=== PATIENT | female | born 1945 | race Caucasian/White ===

== ENCOUNTER 2016-12-11 11:03 | Day surgery (SDC) | payer MEDICARE, BC ==
[~2016-12-11 11:03] MED LIST: Lactated Ringers 1,000 ML IV SCH; Midazolam 1 MG/ML 2 ML SDV ONE; Propofol 200 MG/20 ML SDV ONE
--- NOTE | 2016-12-11 13:18 | PCM.PREANE ---
Preanesthetic Assessment - Anesthesia/Transfusion/Family Hx Anesthesia History: No Prior Anesthesia Other Type of Anesthesia Reaction Comment: states "it takes me awhile to wake up " Family History of Anesthesia Reaction: No Transfusion History: No Prior Transfusion(s) - Review of Systems General: No Symptoms Pulmonary: No Symptoms Cardiovascular: No Symptoms Gastrointestinal: No Symptoms Neurological: No Symptoms Other: Reports: None - Physical Assessment NPO Status Date: 12/10/16 Height: 1.68 m Weight: 101.151 kg ASA Class: 2 Mental Status: Alert & Oriented x3 Airway Class: Mallampati = 2 Dentition: Reports: Normal Dentition, Bridge ROM/Head Extension: Full Lungs: Clear to Auscultation, Normal Respiratory Effort Cardiovascular: Regular Rate, Regular Rhythm - Allergies Allergies/Adverse Reactions: Allergies Allergy/AdvReac Type Severity Reaction Status Date / Time aspirin [From Percodan] Allergy Cannot Verified 09/20/13 11:37 Remember bacitracin Allergy Cannot Verified 09/20/13 11:37 Remember oxycodone HCl [From Percodan] Allergy Cannot Verified 09/20/13 11:37 Remember oxycodone terephthalate Allergy Cannot Verified 09/20/13 11:37 [From Percodan] Remember polymyxin B Allergy Cannot Verified 09/20/13 11:37 Remember - Acknowledgements Anesthesia Type Planned: MAC Pt an Appropriate Candidate for the Planned Anesthesia: Yes Alternatives and Risks of Anesthesia Discussed w Pt/Guardian: Yes Pt/Guardian Understands and Agrees with Anesthesia Plan: Yes PreAnesthesia Questionnaire HEENT History: Reports: Other (See Below) Other HEENT History: wears glasses Cardiovascular History: Reports: Heart Murmur, Hypertension Gastrointestinal History: Reports: GERD, Hiatal Hernia, Other (See Below) Other Gastrointestinal History: hx gastric ulcer Genitourinary History: Reports: None 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: Musculoskeletal History: Reports: Arthritis Endocrine/Metabolic History: Reports: Diabetes, Type II, Obesity/BMI 30+ Oncologic (Cancer) History: Reports: Basal Cell Carcinoma - Past Surgical History Head Surgeries/Procedures: Reports: None HEENT Surgical History: Reports: Oral Surgery, Tonsillectomy GI Surgical History: Reports: Appendectomy Female Surgical History: Reports: Hysterectomy Dermatological Surgical History: Reports: Skin Biopsy - SUBSTANCE USE Smoking Status *Q: Never Smoker Recreational Drug Use History: No - HOME MEDS Home Medications: Home Meds Aspirin [Lo-Dose Aspirin EC] 81 mg PO DAILY 12/09/16 [History] Cod Liver Oil 1,000 mg PO DAILY 12/09/16 [History] Enalapril Maleate 2.5 mg PO DAILY 12/09/16 [History] Fluticasone Propionate [Flonase Allergy Relief] 1 spray NASBOTH DAILY 12/09/16 [ History] Furosemide [Lasix] 20 mg PO DAILY 12/09/16 [History] Ranitidine HCl [Zantac] 150 mg PO DAILY PRN 12/09/16 [History] Tretinoin/Emollient Base [Tretinoin 0.05% Emollient Crm] 1 applic TOP ASDIRECTED PRN 12/09/16 [History] Turmeric Root Extract [Turmeric] 1 tab PO DAILY 12/09/16 [History] amLODIPine Besylate [Amlodipine Besylate] 10 mg PO DAILY 12/09/16 [History] metFORMIN HCl [Metformin HCl] 850 mg PO BID 12/09/16 [History] - CURRENT (IN HOUSE) MEDS Current Meds: Current Medications Lactated Ringer's (Ringers, Lactated) 1,000 mls @ 125 mls/hr IV ASDIRECTED ANTHONY Discontinued Medications Midazolam HCl (Versed 1 Mg/Ml) Confirm Administered Dose 2 mg .ROUTE .STK-MED ONE Stop: 12/11/16 07:17 Propofol (Diprivan 20 Ml) Confirm Administered Dose 400 mg .ROUTE .STK-MED ONE Stop: 12/11/16 07:17
[2016-12-11] MEDS ORDERED: Propofol 200 MG/20 ML SDV ONE (13:45)
--- NOTE | 2016-12-11 14:11 | PCM.OPNOTE ---
- General Post-Op/Procedure Note Date of Surgery/Procedure: 12/11/16 Operative Procedure(s): Colonoscopy with cold, proximal rectal polypectomy Pre Op Diagnosis: Desire for colorectal cancer screening. Family history of colon cancer. Post-Op Diagnosis: Proximal rectal polyp. Minimal sigmoid diverticulosis Anesthesia Technique: MAC (ASA II) Primary Surgeon: Samy Jacome Sales Market Leader: Anne-Marie Tripathi Condition: Good Free Text/Narrative:: Dictation [id number] CPT CODE 30498
[2016-12-11] MEDS ORDERED: Lactated Ringers 1,000 ML IV SCH (14:15)
--- NOTE | 2016-12-11 14:22 | PCM.POSTAN ---
POST ANESTHESIA ASSESSMENT - MENTAL STATUS Mental Status: Alert, Oriented - RESPIRATORY Respiratory Status: Respiratory Rate WNL, Airway Patent, O2 Saturation Stable - CARDIOVASCULAR CV Status: Pulse Rate WNL, Blood Pressure Stable - GASTROINTESTINAL GI Status: No Symptoms - POST OP HYDRATION Hydration Status: Adequate & Stable
--- NOTE | 2016-12-11 14:22 | PCM48HPAN ---
Post Anesthesia Note - EVALUATION WITHIN 48HRS OF ANESTHETIC Vital Signs in Normal Range: Yes Patient Participated in Evaluation: Yes Respiratory Function Stable: Yes Airway Patent: Yes Cardiovascular Function Stable: Yes Hydration Status Stable: Yes Pain Control Satisfactory: Yes Nausea and Vomiting Control Satisfactory: Yes Mental Status Recovered: Yes
[2016-12-11 16:17] VITALS: BP 117/57
--- NOTE | 2016-12-11 19:09 | OR ---
SURGEON: Samy Jacome M.D. DATE OF PROCEDURE: 12/11/2016 OPERATION PERFORMED: Colonoscopy with cold proximal rectal polypectomy. ANESTHESIA: MAC. ASA CLASSIFICATION: II. PREOPERATIVE DIAGNOSES: 1. Desire for colorectal cancer screening. 2. Family history of colon cancer. POSTOPERATIVE DIAGNOSES: 1. Proximal rectal polyp. 2. Minimal sigmoid diverticulosis. DESCRIPTION OF PROCEDURE: The patient was taken to the endoscopy room and positioned on the endoscopy table in the left lateral decubitus position. Time-out was called for appropriate identification of the patient and procedure. Monitored anesthesia care was provided. The colonoscope was inserted into the rectum and advanced with moderate difficulty to the cecum where the colonoscope was retroflexed to visualize the ascending colon from below. The colonoscope was then straightened and slowly withdrawn. The cecum, ascending colon, hepatic flexure, transverse colon, splenic flexure, and descending colon showed no tumors, polyps, diverticula, or angiodysplastic changes. A few small scattered diverticula were noted in the sigmoid colon. One polyp was encountered in the proximal rectum and removed with the cold biopsy forceps. No significant bleeding was noted. The colonoscope was then withdrawn to the distal rectum and retroflexed to visualize the anal orifice from above. Again, no tumors or polyps were seen and there were no acute hemorrhoidal changes. The colonoscope was then straightened, the rectum aspirated, and the colonoscope removed. The patient tolerated the procedure well and was taken to recovery room in stable condition. EVELINE MIKE /[id number]
== END 2016-12-11 14:46 | disposition home or self-care (01) ==
LOC: MW.SDS 11:03
PROVIDERS: ATTEND Surgery
DX: Z12.11 Encounter for screening for malignant neoplasm of colon (principal); D12.8 Benign neoplasm of rectum; Z80.0 Family history of malignant neoplasm of digestive organs; K57.30 Diverticulosis of large intestine without perforation or abscess without bleeding; E11.9 Type 2 diabetes mellitus without complications; I10 Essential (primary) hypertension; E78.00 Pure hypercholesterolemia, unspecified; J30.2 Other seasonal allergic rhinitis; Z88.8 Allergy status to other drugs, medicaments and biological substances; Z79.82 Long term (current) use of aspirin; Z79.899 Other long term (current) drug therapy; Z90.49 Acquired absence of other specified parts of digestive tract; Z90.710 Acquired absence of both cervix and uterus; Z98.890 Other specified postprocedural states
CPT/HCPCS: 45380; 88305; J2250; J7120; 00810; J2704

== ENCOUNTER 2020-11-11 07:14 | Day surgery (SDC) | payer MEDICARE, BC ==
[~2020-11-11 07:14] MED LIST changes: -Midazolam 1 MG/ML 2 ML SDV ONE; -Propofol 200 MG/20 ML SDV ONE
--- NOTE | 2020-11-11 07:46 | PCM.PREANE ---
Preanesthetic Assessment - Procedure Proposed Procedure: Colonoscopy - Anesthesia/Transfusion/Family Hx Anesthesia History: Prior Anesthesia Without Reaction Other Type of Anesthesia Reaction Comment: states "it takes me awhile to wake up" Transfusion History: No Prior Transfusion(s) Additional History: Colonoscopy - Review of Systems General: No Symptoms (Stage II CKD) Pulmonary: No Symptoms Cardiovascular: No Symptoms (HTN, HLD) Gastrointestinal: No Symptoms Neurological: No Symptoms Other: Reports: None, Diabetes (NIDDM) - Physical Assessment NPO Status Date: 11/09/20 NPO Status Time: 18:00 Height: 5 ft 6 in Weight: 95.254 kg (Obesity) ASA Class: 3 Mental Status: Alert & Oriented x3 Airway Class: Mallampati = 2 Dentition: Reports: Normal Dentition Thyro-Mental Finger Breadths: 3 Mouth Opening Finger Breadths: 3 ROM/Head Extension: Full Lungs: Clear to Auscultation, Normal Respiratory Effort Cardiovascular: Regular Rate, Regular Rhythm - Allergies Allergies/Adverse Reactions: Allergies Allergy/AdvReac Type Severity Reaction Status Date / Time aspirin [From Percodan] Allergy Itching Verified 11/06/20 11:42 bacitracin Allergy Rash Verified 11/06/20 11:42 oxycodone HCl [From Percodan] Allergy Itching Verified 11/06/20 11:46 oxycodone terephthalate Allergy Itching Verified 11/06/20 11:42 [From Percodan] - Acknowledgements Anesthesia Type Planned: General Anesthesia Pt an Appropriate Candidate for the Planned Anesthesia: Yes Alternatives and Risks of Anesthesia Discussed w Pt/Guardian: Yes Pt/Guardian Understands and Agrees with Anesthesia Plan: Yes PreAnesthesia Questionnaire HEENT History: Reports: Allergic Rhinitis, Other (See Below) Other HEENT History: wears glasses Cardiovascular History: Reports: High Cholesterol, Hypertension Respiratory History: Reports: None Gastrointestinal History: Reports: Colon Polyp, Diverticulosis, GERD, Hiatal Hernia, Other (See Below) Genitourinary History: Reports: Other (See Below) Other Genitourinary History: stage II kidney disease 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: Musculoskeletal History: Reports: Arthritis Neurological History: Reports: None Psychiatric History: Reports: None Endocrine/Metabolic History: Reports: Diabetes, Type II, Obesity/BMI 30+ Hematologic History: Reports: None Immunologic History: Reports: None Oncologic (Cancer) History: Reports: Squamous Cell Carcinoma Dermatologic History: Reports: Other (See Below) - Past Surgical History Head Surgeries/Procedures: Reports: None HEENT Surgical History: Reports: Adenoidectomy, Oral Surgery, Tonsillectomy Cardiovascular Surgical History: Reports: None Respiratory Surgical History: Reports: None GI Surgical History: Reports: Appendectomy, Colonoscopy Female Surgical History: Reports: Hysterectomy, Salpingo-Oophorectomy Endocrine Surgical History: Reports: None Neurological Surgical History: Reports: None Musculoskeletal Surgical History: Reports: None Oncologic Surgical History: Reports: Other (See Below) Other Oncologic Surgeries/Procedures: skin biopsies Dermatological Surgical History: Reports: Skin Biopsy - HOME MEDS Home Medications: Home Meds Aspirin [Lo-Dose Aspirin EC] 81 mg PO DAILY 12/09/16 [History] Enalapril Maleate 5 mg PO DAILY 12/09/16 [History] Fluticasone Propionate [Flonase Allergy Relief] 1 spray NASBOTH DAILY PRN 12/09/16 [History] Furosemide [Lasix] 20 mg PO DAILY 12/09/16 [History] amLODIPine Besylate [Amlodipine Besylate] 10 mg PO DAILY 12/09/16 [History] metFORMIN HCl [Metformin HCl] 850 mg PO BID 12/09/16 [History] Loratadine/Pseudoephedrine [Claritin-D 24 Hour Tablet] 1 tab PO DAILY PRN 11/05/20 [History] Omeprazole 20 mg PO DAILY PRN 11/05/20 [History] fluorouraciL [Fluorouracil] 1 applic TOP BEDTIME 11/05/20 [History] - CURRENT (IN HOUSE) MEDS Current Meds: Current Medications Lactated Ringer's (Ringers, Lactated) 1,000 mls @ 125 mls/hr IV ASDIRECTED ANTHONY
--- NOTE | 2020-11-11 08:06 | PCM.PREANE ---
Preanesthetic Assessment - Anesthesia/Transfusion/Family Hx Anesthesia History: Prior Anesthesia Without Reaction Other Type of Anesthesia Reaction Comment: states "it takes me awhile to wake up" Transfusion History: No Prior Transfusion(s) - Physical Assessment Vital Signs: Last Vital Signs Temp Pulse 65 11/11/20 07:35 Resp 16 11/11/20 07:35 BP 159/74 H 11/11/20 07:35 Pulse Ox 96 11/11/20 07:35 Height: 5 ft 6 in Weight: 95.254 kg (Obesity) - Lab Values: Laboratory Last Values POC Glucose 97 mg/dL (70-99) 11/11/20 07:31 - Allergies Allergies/Adverse Reactions: Allergies Allergy/AdvReac Type Severity Reaction Status Date / Time aspirin [From Percodan] Allergy Itching Verified 11/06/20 11:42 bacitracin Allergy Rash Verified 11/06/20 11:42 oxycodone HCl [From Percodan] Allergy Itching Verified 11/06/20 11:46 oxycodone terephthalate Allergy Itching Verified 11/06/20 11:42 [From Percodan] PreAnesthesia Questionnaire HEENT History: Reports: Allergic Rhinitis, Other (See Below) Other HEENT History: wears glasses Cardiovascular History: Reports: High Cholesterol, Hypertension Respiratory History: Reports: None Gastrointestinal History: Reports: Colon Polyp, Diverticulosis, GERD, Hiatal Hernia, Other (See Below) Genitourinary History: Reports: Other (See Below) Other Genitourinary History: stage II kidney disease 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: Musculoskeletal History: Reports: Arthritis Neurological History: Reports: None Psychiatric History: Reports: None Endocrine/Metabolic History: Reports: Diabetes, Type II, Obesity/BMI 30+ Hematologic History: Reports: None Immunologic History: Reports: None Oncologic (Cancer) History: Reports: Squamous Cell Carcinoma Dermatologic History: Reports: Other (See Below) - Past Surgical History Head Surgeries/Procedures: Reports: None HEENT Surgical History: Reports: Adenoidectomy, Oral Surgery, Tonsillectomy Cardiovascular Surgical History: Reports: None Respiratory Surgical History: Reports: None GI Surgical History: Reports: Appendectomy, Colonoscopy Female Surgical History: Reports: Hysterectomy, Salpingo-Oophorectomy Endocrine Surgical History: Reports: None Neurological Surgical History: Reports: None Musculoskeletal Surgical History: Reports: None Oncologic Surgical History: Reports: Other (See Below) Other Oncologic Surgeries/Procedures: skin biopsies Dermatological Surgical History: Reports: Skin Biopsy - HOME MEDS Home Medications: Home Meds Aspirin [Lo-Dose Aspirin EC] 81 mg PO DAILY 12/09/16 [History] Enalapril Maleate 5 mg PO DAILY 12/09/16 [History] Fluticasone Propionate [Flonase Allergy Relief] 1 spray NASBOTH DAILY PRN 12/09/16 [History] Furosemide [Lasix] 20 mg PO DAILY 12/09/16 [History] amLODIPine Besylate [Amlodipine Besylate] 10 mg PO DAILY 12/09/16 [History] metFORMIN HCl [Metformin HCl] 850 mg PO BID 12/09/16 [History] Loratadine/Pseudoephedrine [Claritin-D 24 Hour Tablet] 1 tab PO DAILY PRN 11/05/20 [History] Omeprazole 20 mg PO DAILY PRN 11/05/20 [History] fluorouraciL [Fluorouracil] 1 applic TOP BEDTIME 11/05/20 [History] - CURRENT (IN HOUSE) MEDS Current Meds: Current Medications Lactated Ringer's (Ringers, Lactated) 1,000 mls @ 125 mls/hr IV ASDIRECTED [facility] Last Admin: 11/11/20 07:39 Dose: 125 mls/hr Documented by:
[2020-11-11] MEDS ORDERED: propofoL 50 ML ONE (08:28)
[2020-11-11] MEDS ORDERED: Lidocaine 2% 5 ML SDV ONE (08:34)
[2020-11-11] MEDS ORDERED: Propofol 200 MG/20 ML SDV ONE (09:17)
--- NOTE | 2020-11-11 09:35 | PCM.OPNOTE ---
- General Post-Op/Procedure Note Date of Surgery/Procedure: 11/11/20 Operative Procedure(s): Colonoscopy Pre Op Diagnosis: Personal history of colon polyps. Family history of colon cancer. Post-Op Diagnosis: No evidence of neoplasia. Anesthesia Technique: MAC (ASA III) Primary Surgeon: Samy Jacome Condition: Good Free Text/Narrative:: DICTATION [id number] CPT CODE [id number]
--- NOTE | 2020-11-11 09:40 | PCM.POSTAN ---
POST ANESTHESIA ASSESSMENT - MENTAL STATUS Mental Status: Somnolent - VITAL SIGNS Vital Signs: Last Vital Signs Temp Pulse 65 11/11/20 09:38 Resp 14 11/11/20 09:38 BP 125/64 11/11/20 09:38 Pulse Ox 97 11/11/20 09:38 - RESPIRATORY Respiratory Status: Respiratory Rate WNL, Airway Patent, O2 Saturation Stable - CARDIOVASCULAR CV Status: Pulse Rate WNL, Blood Pressure Stable - GASTROINTESTINAL GI Status: No Symptoms - PAIN Free Text/Narrative:: Resting comfortably - POST OP HYDRATION Hydration Status: Adequate & Stable
[2020-11-11] MEDS ORDERED: Lactated Ringers 1,000 ML IV SCH (09:45)
[2020-11-11 09:49] VITALS: PULSE 60
--- NOTE | 2020-11-11 09:51 | PCM48HPAN ---
Post Anesthesia Note - EVALUATION WITHIN 48HRS OF ANESTHETIC Vital Signs in Normal Range: Yes Patient Participated in Evaluation: Yes Respiratory Function Stable: Yes Airway Patent: Yes Cardiovascular Function Stable: Yes Hydration Status Stable: Yes Pain Control Satisfactory: Yes Nausea and Vomiting Control Satisfactory: Yes Mental Status Recovered: Yes Vital Signs: Last Vital Signs Temp Pulse 60 11/11/20 09:48 Resp 10 L 11/11/20 09:48 BP 105/81 11/11/20 09:48 Pulse Ox 95 11/11/20 09:48 - COMMENTS/OBSERVATIONS Free Text/Narrative:: Pt doing well post-op. VSS. No apparent anesthetic complications. Dr. Poli Mitchell
[2020-11-11 10:06] VITALS: BP 122/61
--- NOTE | 2020-11-11 10:27 | OR ---
SURGEON: Samy Jacome M.D. DATE OF PROCEDURE: 11/11/2020 OPERATION PERFORMED: Colonoscopy. PRIMARY SURGEON: Samy Jacome MD ANESTHESIA: MAC. ASA CLASSIFICATION: III. PREOPERATIVE DIAGNOSES: 1. Personal history of colon polyps. 2. Family history of colon cancer. POSTOPERATIVE DIAGNOSES: No evidence of neoplasia. No significant diverticulosis noted today. DESCRIPTION OF PROCEDURE: The patient was taken to the endoscopy room and positioned on the endoscopy table in the left lateral decubitus position. Time-out was called for appropriate identification of the patient and procedure. Monitored anesthesia care was provided. The colonoscope was inserted into the rectum and advanced with moderate difficulty to the cecum. The cecum was identified by internal landmarks and external pressure. The colonoscope was retroflexed to visualize the ascending colon from below, then straightened, and slowly withdrawn. The cecum, ascending colon, hepatic flexure, transverse colon, splenic flexure, and descending colon showed no tumors, polyps, diverticula, or angiodysplastic changes. No significant acute diverticular changes were noted in the sigmoid colon despite her history. No polyps were encountered in the sigmoid colon. The colonoscope was then withdrawn to the rectum and retroflexed to visualize the anal orifice from above. No tumors, polyps, or acute hemorrhoidal changes were noted. The colonoscope was then straightened, the rectum aspirated, and the colonoscope removed. The patient tolerated the procedure well and was taken to recovery room in stable condition. EVELINE / CEE /[id number]
== END 2020-11-11 10:17 | disposition home or self-care (01) ==
LOC: MW.SDS 07:14
PROVIDERS: ATTEND Surgery
DX: Z12.11 Encounter for screening for malignant neoplasm of colon (principal); I12.9 Hypertensive chronic kidney disease with stage 1 through stage 4 chronic kidney disease, or unspecified chronic kidney disease; N18.9 Chronic kidney disease, unspecified; E11.9 Type 2 diabetes mellitus without complications; E78.00 Pure hypercholesterolemia, unspecified; Z86.010 Personal history of colon polyps; E66.9 Obesity, unspecified; Z88.8 Allergy status to other drugs, medicaments and biological substances; Z79.82 Long term (current) use of aspirin; Z79.84 Long term (current) use of oral hypoglycemic drugs; Z79.899 Other long term (current) drug therapy; Z80.0 Family history of malignant neoplasm of digestive organs; Z68.33 Body mass index [BMI] 33.0-33.9, adult
CPT/HCPCS: 82947; G0105; J2704; J7120; 00812; 99100